=== PATIENT | female | born 1940 | race Caucasian/White ===

== ENCOUNTER 2022-07-14 09:41 | Inpatient (IN) | payer OTHER ==
[~2022-07-14] VITALS: Ht 170.2 cm; Wt 48.1 kg
[2022-07-14 09:41] VITALS: BP_SYST 111
--- NOTE | 2022-07-14 09:41 | NUR ---
ASSISTED OUT OF CAR TO WHEELCHAIR, BROUGHT BACK TO BED #6 AND TRIAGED. REPORT GIVEN TO NANCY
--- NOTE | 2022-07-14 09:42 | NUR ---
RECEIVED PT FROM MALENA HERNÁNDEZ. PT BIB GRANDDAUGHTER FOR C/O SOB. PT IS AAOX4. ON R/A. 02 SAT AT 89%. NC AT 2LPM PLACED. NORMAL S1S2 NOTED. DENIES N/V/D/C. DISTAL PULSES NORMAL. DENIES PAIN. SIDERAILS UP X2.
[2022-07-14] MEDS ORDERED: methylPREDNISolone SOD SUCC/PF 62.5 MG/ML VIAL IVP ONE (09:45)
[2022-07-14] MEDS ORDERED: IPRATROPIUM/ALBUTEROL SULFATE 3 ML AMPUL.NEB (DUONEB) INH ONE (09:45)
--- NOTE | 2022-07-14 09:45 | NUR ---
ER at bedside examining patient.
--- NOTE | 2022-07-14 09:50 | NUR ---
# 20 gauge angiocath placed to LFA. Use of asceptic technique. Opsite placed over site. Blood return noted. Flushed with 10 cc of normal saline. No evidence of infiltration noted. Patient tolerated well.
--- NOTE | 2022-07-14 10:04 | NUR ---
BLOOD OBTAINED AND TAKEN TO LAB, CXR COMPLETED. R/T AT BEDSIDE TO GIVE BREATHING TX.
--- NOTE | 2022-07-14 10:08 | NUR ---
SCHEDULED MED GIVEN AND TOLERATED WELL.
[2022-07-14 10:22] LABS: EOSINOPHILS % (AUTO) 0.1 % (0.0-4.0); HEMATOCRIT 38.3 % (36-48); HEMOGLOBIN 12.7 g/dL (12.0-16.0); LYMPHOCYTES # (AUTO) 1.2 K/uL (1.0-5.5); LYMPHOCYTES % (AUTO) 15.9 % (20.5-51.5); MEAN CORPUSCULAR HEMOGLOBIN 31 pg (27-31); MEAN CORPUSCULAR HGB CONC 33 % (32-36); MEAN CORPUSCULAR VOLUME 95 fL (79.0-98.0); MONOCYTES # (AUTO) 0.4 K/uL (0.0-1.0); MONOCYTES % (AUTO) 5.6 % (1.7-9.3); NEUTROPHILS # (AUTO) 5.8 K/uL (1.8-7.7); NEUTROPHILS % (AUTO) 78.4 % (40.0-70.0); PLATELET COUNT (AUTO) 137 K/uL (130-430); RED BLOOD CELL COUNT(AUTO) 4.05 MIL/uL (4.2-6.2); RED CELL DISTRIBUTION WIDTH 14.1 % (9.0-15.0); WHITE BLOOD COUNT (AUTO) 7.4 K/uL (4.8-10.8)
[2022-07-14 10:49] LABS: ALANINE AMINOTRANSFERASE 44 U/L (12-78); ALBUMIN 3.3 g/dL (3.4-4.8); ANION GAP 3 (5-15); ASPARTATE AMINOTRANSFERASE 48 U/L (10-37); CALCIUM 8.9 mg/dL (8.4-11.0); CHLORIDE 87 mmol/L (98-107); CREATININE 0.96 mg/dL (0.55-1.30); GLUCOSE 130 mg/dL (70-99); TOTAL BILIRUBIN 0.5 mg/dL (0.0-1.0); UREA NITROGEN, BLOOD 23 mg/dL (8-21)
--- NOTE | 2022-07-14 10:49 | NUR ---
CT SCAN COMPLETED. PT PLACED BACK ON MONITOR.
[2022-07-14 10:55] LABS: INR 1.1 (0.8-1.2)
--- NOTE | 2022-07-14 10:57 | NUR ---
NS 1000ML INITATED AT 150ML/HOUR,
--- NOTE | 2022-07-14 10:58 | NUR ---
BRIAN SWABBED AND SENT TO LAB
[2022-07-14] MEDS ORDERED: NACL 0.9% 1,000 ML IV ONE (11:00)
[2022-07-14] MEDS ORDERED: BENA10TA73 PO (12:38)
[2022-07-14] MEDS ORDERED: CARV25TA55 PO (12:38)
[2022-07-14] MEDS ORDERED: SIMV-341 PO (12:38)
[2022-07-14] MEDS ORDERED: RIVA15TA PO (12:38)
--- NOTE | 2022-07-14 12:38 | NUR ---
Medication reconciliation completed with information provided by PATIENT. Any prior medication reconciliation on file was reviewed and corrected.
--- NOTE | 2022-07-14 13:28 | NUR ---
Admit bed requested Patient will be admitted to care of . Admitted to TELEMETRY unit. Diagnosis COPD EXACERBATION Inpatient (Yes or No) YES Observation (Yes or No) NO Orientation concerns or request close to nursing station (Yes or No) NO Covid Status NEGATIVE On vent or bipap NO Isolation requirements NONE Needs a sitter NO From Home (Yes or if No enter name of facility) YES Requires Dialysis (Yes or No) NO Med Rec Completed (Yes of No) YES
[2022-07-14] MEDS: METHYLPREDNISOLONE SOD SUCC 40 MG/ML VIAL IVP SCH ×2 (13:49→21:45)
--- NOTE | 2022-07-14 13:49 | NUR ---
ROCHEPHIN IVPB GIVEN, SOLUMEDROL IVP GIVEN.
[2022-07-14 13:57] LABS: CLARITY/URINE CLEAR (CLEAR); COLOR,URINE YELLOW (YELLOW); GLUCOSE,URINE NEGATIVE (NEGATIVE); KETONES,URINE 1+ (NEGATIVE); LEUKOCYTE ESTERASE ,URINE NEGATIVE (NEGATIVE); NITRITE, URINE NEGATIVE (NEGATIVE); PROTEIN URINE 2+ (NEGATIVE); UROBILINOGEN,URINE 0.2 (0.2-1.0)
[2022-07-14] MEDS ORDERED: cefTRIAXone 1 GM IVPB PREMIX 50 ML IV ONE (14:00)
[2022-07-14 14:10] LABS: BILIRUBIN,URINE NEGATIVE (NEGATIVE); BLOOD, URINE TRACE (NEGATIVE)
[2022-07-14 14:16] LABS: BACTERIA,URINE None Seen /HPF (None Seen); MUCUS,URINE 1+ /LPF (None Seen); WBC,URINE 0-3 /HPF (0-3)
[2022-07-14] MEDS: IPRATROPIUM/ALBUTEROL SULFATE 3 ML AMPUL.NEB (DUONEB) INH SCH ×3 (15:00→23:38)
[2022-07-14] MEDS: cefTRIAXone 1 GM IVPB PREMIX 50 ML IV SCH (15:52)
--- NOTE | 2022-07-14 17:36 | NUR ---
Patient will be admitted to care of MALENA CHUNG. Admitted to TELEMETRY unit. Will go to room 101B. Belongings list completed. Complete and up to date summary report printed. SBAR report to be given at bedside with opportunity for questions.
[2022-07-14 18:57] VITALS: BP_SYST 162
[2022-07-14 20:00] VITALS: BP_SYST 149
--- NOTE | 2022-07-14 20:40 | NUR ---
Patient received in room 101B at 1730 with grand saucedo at bedside. Gave patient orientation to room, call light and discussed saftey issues. Admission completed by this RN and report given to MALENA Banda for NOC shift care at this time. MD has been to bedside for admission and to provide patient meds at this time.
[2022-07-14] MEDS ORDERED: LORATADINE PO SCH (21:00)
[2022-07-14] MEDS ORDERED: [UNRECOGNIZED DRUG - OTHER] PO SCH (21:00)
[2022-07-14] MEDS ORDERED: P-EPHED SUL/LORATADINE 1 EACH TAB.SR.12H PO ONE ×2 (21:15→21:30)
--- NOTE | 2022-07-14 21:45 | NUR ---
Solu-medrol Scheduled med given as ordered. Reviewed side effects and she verbalized understanding.
--- NOTE | 2022-07-14 22:55 | NUR ---
Dr. Hurt, pt coughing s/w Dr. Hurt and informed patient is coughing and received medication order for Promethezine DM 5ml Q6P cough; TORB
[2022-07-14 23:44] VITALS: BP_SYST 149
[2022-07-15 01:22] VITALS: BP_SYST 149
[2022-07-15] MEDS ORDERED: PROMETHAZINE-DM 6.25 MG-15 MG/5 ML UDC ONE (01:36)
[2022-07-15] MEDS: IPRATROPIUM/ALBUTEROL SULFATE 3 ML AMPUL.NEB (DUONEB) INH SCH ×6 (03:49→23:00)
[2022-07-15] MEDS: METHYLPREDNISOLONE SOD SUCC 40 MG/ML VIAL IVP SCH ×4 (06:20→23:43)
--- NOTE | 2022-07-15 06:46 | NUR ---
CLOSING Patient is sleeping comfortably in bed, no s/s of any discomfort, cough subsided with promethazine, pt was able to sleep, IV on left AC 20 Gauge patent and intact. bed at lowest position for safety. encourage to use call light for assistance. will endorse to income nurse.
[2022-07-15 08:00] VITALS: BP_SYST 157; BP_SYST 158
[2022-07-15] MEDS: P-EPHED SUL/LORATADINE 1 EACH TAB.SR.12H PO SCH ×2 (08:44→20:24)
[2022-07-15 11:38] VITALS: BP_SYST 155
[2022-07-15] MEDS ORDERED: LISINOPRIL 10 MG TABLET (PRINIVIL) PO ONE (12:30)
[2022-07-15] MEDS ORDERED: CARVEDILOL 25 MG TABLET (COREG) PO ONE (12:30)
[2022-07-15] MEDS ORDERED: FUROSEMIDE 20 MG/2 ML VIAL IVP ONE (12:45)
[2022-07-15] MEDS ORDERED: NACL 0.9% 1,000 ML IV SCH (12:45)
--- NOTE | 2022-07-15 12:53 | NUR ---
CONSULTATION PAGED REASON FOR CONSULTATION:HYPOPNATREMIA WAS CONSULT CALLED?Y PERSON WHO WAS NOTIFIED:KANDI CONSULTING PHYSICIAN:GARLAND BAILON ( [employer]ERMAN HELPER) DOOR TO DOOR SELLING AGENT SPECIALTY:NEPHRO DOOR TO DOOR SELLING AGENT PHONE NUMBER:[phone] REQUESTING PHYSICIAN:JELENA ZHANG
[2022-07-15] MEDS: PROMETHAZINE-DM 6.25 MG-15 MG/5 ML UDC PO PRN ×2 (13:24→20:24)
[2022-07-15] MEDS: AZITHROMYCIN 500 MG in NS 250 ML IV SCH (15:20)
[2022-07-15] MEDS: ACETYLCYSTEINE 20% 4 ML VIAL (RT) INH SCH ×2 (15:51→21:00)
--- NOTE | 2022-07-15 15:53 | NUR ---
Dietitian Recommendations * Regular diet, Ensure TID, Dixon BID (supplements yield an additional 1230 kcal/day, 65 gm protein/day) * Snacks TID between meals * Encourage good PO intakes LP, MS, RD Please refer to Nutrition Assessment for details. Addendum: 07/15/22 at [address] Amended: Links added.
[2022-07-15 16:36] VITALS: BP_SYST 147
[2022-07-15] MEDS: RIVAROXABAN 15 MG TABLET PO SCH (17:49)
--- NOTE | 2022-07-15 18:16 | NUR ---
A/OX4,VSS,O2 SAT 94% ON ROOM AIR,COUGHING AT TIMES WITH WHITE THIN SPUTUM,IV SITE IN LEFT ANTECUBITAL REMAINS PATENT AND INTACT, IVF CONTINUE INFUSING,GIVE IV ANTIBIOTIC ,NO ADVERSE REACTIONS OBSERVED NEEDS ATTENDED,CALL LIGHT & PERSONAL ITEMS WITHIN PT REACH,SAFETY MAINTAINED CONTINUE TO MONITOR PT.
[2022-07-15 19:18] VITALS: BP_SYST 148
--- NOTE | 2022-07-15 19:18 | NUR ---
PM ASSESSMENT; Patient is awake, alert, oriented X 4. Patient oriented to hospital room, call light, toileting, pain management and safety-teach back done. Pt denies any chest pain,pain,sob,or any acute distress. Patient informed that I (Regina) will be her nurse and that their room number is 101-B. Discussed poc and all safety measures, pt verbalized understanding. Side rails x2, Call light within reach. Cont to monitor pt.
[2022-07-15] MEDS: SIMVASTATIN 10 MG TABLET PO SCH (20:25)
--- NOTE | 2022-07-15 22:35 | NUR ---
CONSULTATION CALLED FOR MP GAGNON FOR CONSULT OF COPD EXACERBATE ORDER BY DR. DIAZ SPOKE WITH SHERLYN
[2022-07-16] VITALS (7 sets, daily range): BP systolic 152–172
--- NOTE | 2022-07-16 00:11 | NUR ---
ROUNDS; -Pt is resting in bed. Pt denies any chest pain,pain,sob,or any acute distress. VSS. IVF infusing well, no s/s any infiltration noted. Side rails x2, bed alarmed. Call light within reach. Cont to monitor pt.
[2022-07-16] MEDS: IPRATROPIUM/ALBUTEROL SULFATE 3 ML AMPUL.NEB (DUONEB) INH SCH ×6 (03:00→23:00)
[2022-07-16] MEDS: PROMETHAZINE-DM 6.25 MG-15 MG/5 ML UDC PO PRN ×3 (03:38→23:00)
--- NOTE | 2022-07-16 03:38 | NUR ---
ROUNDS; -Pt awakes, just using BSC and returned to bed safely. Pt denies any chest pain,pain,sob,or any acute distress. Gave Phenergan DM for cough. Side rails x2, bed alarmed. Call light within reach. Cont to monitor pt.
[2022-07-16] MEDS: METHYLPREDNISOLONE SOD SUCC 40 MG/ML VIAL IVP SCH ×4 (05:40→23:00)
--- NOTE | 2022-07-16 06:57 | NUR ---
CLOSING NOTES; -Pt awakes, resting in bed comfortably. Pt denies chest pain,pain,sob,or any acute distress. Pt's condition stable. Bed alarmed, side rails x3,call light w/in reach. Will endorse to next nurse to cont care.
[2022-07-16] MEDS: ACETYLCYSTEINE 20% 4 ML VIAL (RT) INH SCH ×3 (07:40→19:27)
[2022-07-16] MEDS: LISINOPRIL 10 MG TABLET (PRINIVIL) PO SCH (08:44)
[2022-07-16] MEDS: P-EPHED SUL/LORATADINE 1 EACH TAB.SR.12H PO SCH ×2 (08:45→21:18)
[2022-07-16] MEDS: CARVEDILOL 25 MG TABLET (COREG) PO SCH (08:45)
[2022-07-16 10:25] LABS: BASOPHILS % (AUTO) 0.1 % (0.0-2.0); HEMATOCRIT 37.2 % (36-48); HEMOGLOBIN 12.6 g/dL (12.0-16.0); LYMPHOCYTES % (AUTO) 11.1 % (20.5-51.5); MEAN CORPUSCULAR HEMOGLOBIN 32 pg (27-31); MEAN CORPUSCULAR HGB CONC 34 % (32-36); MEAN CORPUSCULAR VOLUME 93 fL (79.0-98.0); MONOCYTES # (AUTO) 0.3 K/uL (0.0-1.0); MONOCYTES % (AUTO) 3.2 % (1.7-9.3); NEUTROPHILS # (AUTO) 7.7 K/uL (1.8-7.7); NEUTROPHILS % (AUTO) 85.6 % (40.0-70.0); PLATELET COUNT (AUTO) 161 K/uL (130-430); RED BLOOD CELL COUNT(AUTO) 4.01 MIL/uL (4.2-6.2); RED CELL DISTRIBUTION WIDTH 14.2 % (9.0-15.0)
[2022-07-16 10:42] LABS: ALANINE AMINOTRANSFERASE 51 U/L (12-78); ALBUMIN 2.9 g/dL (3.4-4.8); ANION GAP 4 (5-15); ASPARTATE AMINOTRANSFERASE 45 U/L (10-37); CALCIUM 8.4 mg/dL (8.4-11.0); CHLORIDE 92 mmol/L (98-107); CREATININE 0.98 mg/dL (0.55-1.30); GLUCOSE 179 mg/dL (70-99); TOTAL BILIRUBIN 0.4 mg/dL (0.0-1.0); UREA NITROGEN, BLOOD 24 mg/dL (8-21)
[2022-07-16] MEDS: cefTRIAXone 1 GM IVPB PREMIX 50 ML IV SCH (15:47)
[2022-07-16] MEDS: AZITHROMYCIN 500 MG in NS 250 ML IV SCH (16:18)
[2022-07-16] MEDS: RIVAROXABAN 15 MG TABLET PO SCH (17:36)
--- NOTE | 2022-07-16 19:25 | NUR ---
PM ASSESSMENT; Patient is awake, alert, oriented X 4. Patient oriented to hospital room, call light, toileting, pain management and safety-teach back done. Pt denies any chest pain,pain,sob,or any acute distress. IV site LAC patent no s/s any infiltration after flushed w/ NS noted. Patient informed that I (Regina) will be her nurse and that their room number is 101-B. Discussed poc and all safety measures, pt verbalized understanding. Side rails x2, Call light within reach. Cont to monitor pt.
[2022-07-16] MEDS: SIMVASTATIN 10 MG TABLET PO SCH (21:18)
[2022-07-16] MEDS: hydrALAZINE HCL 20 MG/ML VIAL IVP PRN (21:19)
--- NOTE | 2022-07-16 21:19 | NUR ---
NOTES; ELEVATED US=964/95,HR=89 -Gave Apresoline 10mg IVP for elevated bp. Instructed pt not get OOB by self d/ to side of this medication ( may cause dizziness and fall risk) pt verbalized understanding. Fall precaution in place. Call light w/in reach, bed alarmed, side rails x2. Cont to monitor pt.
[2022-07-16] MEDS ORDERED: PROMETHAZINE-DM 6.25 MG-15 MG/5 ML UDC ONE (21:37)
[2022-07-17] MEDS: IPRATROPIUM/ALBUTEROL SULFATE 3 ML AMPUL.NEB (DUONEB) INH SCH ×4 (04:07→20:16)
--- NOTE | 2022-07-17 04:23 | NUR ---
ROUNDS; -Pt is resting in bed comfortably. No s/s any acute distress noted. Side rails x2, bed alarmed. Call light within reach. Cont to monitor pt.
[2022-07-17] MEDS: METHYLPREDNISOLONE SOD SUCC 40 MG/ML VIAL IVP SCH ×3 (05:54→20:52)
[2022-07-17] MEDS: ACETYLCYSTEINE 20% 4 ML VIAL (RT) INH SCH (07:12)
[2022-07-17 07:22] LABS: ALANINE AMINOTRANSFERASE 59 U/L (12-78); ALBUMIN 2.9 g/dL (3.4-4.8); ANION GAP 7 (5-15); ASPARTATE AMINOTRANSFERASE 43 U/L (10-37); CALCIUM 8.5 mg/dL (8.4-11.0); CHLORIDE 94 mmol/L (98-107); CREATININE 0.56 mg/dL (0.55-1.30); GLUCOSE 154 mg/dL (70-99); TOTAL BILIRUBIN 0.4 mg/dL (0.0-1.0); UREA NITROGEN, BLOOD 23 mg/dL (8-21)
[2022-07-17 07:24] LABS: HEMATOCRIT 36.3 % (36-48); HEMOGLOBIN 12.3 g/dL (12.0-16.0); LYMPHOCYTES # (AUTO) 1.7 K/uL (1.0-5.5); LYMPHOCYTES % (AUTO) 15.3 % (20.5-51.5); MEAN CORPUSCULAR HEMOGLOBIN 31 pg (27-31); MEAN CORPUSCULAR HGB CONC 34 % (32-36); MEAN CORPUSCULAR VOLUME 93 fL (79.0-98.0); MONOCYTES # (AUTO) 0.3 K/uL (0.0-1.0); MONOCYTES % (AUTO) 2.5 % (1.7-9.3); NEUTROPHILS # (AUTO) 8.9 K/uL (1.8-7.7); NEUTROPHILS % (AUTO) 82.2 % (40.0-70.0); PLATELET COUNT (AUTO) 164 K/uL (130-430); RED BLOOD CELL COUNT(AUTO) 3.92 MIL/uL (4.2-6.2); RED CELL DISTRIBUTION WIDTH 14.4 % (9.0-15.0); WHITE BLOOD COUNT (AUTO) 10.9 K/uL (4.8-10.8)
[2022-07-17 08:00] VITALS: BP_SYST 160
[2022-07-17] MEDS: P-EPHED SUL/LORATADINE 1 EACH TAB.SR.12H PO SCH (08:22)
[2022-07-17] MEDS: CARVEDILOL 25 MG TABLET (COREG) PO SCH (08:22)
[2022-07-17] MEDS: LISINOPRIL 10 MG TABLET (PRINIVIL) PO SCH (08:23)
[2022-07-17 12:00] VITALS: BP_SYST 153
[2022-07-17] MEDS: cefTRIAXone 1 GM IVPB PREMIX 50 ML IV SCH (15:02)
[2022-07-17 16:00] VITALS: BP_SYST 155
[2022-07-17] MEDS: AZITHROMYCIN 500 MG in NS 250 ML IV SCH (16:00)
[2022-07-17] MEDS: RIVAROXABAN 15 MG TABLET PO SCH (18:11)
[2022-07-17 19:00] VITALS: BP_SYST 156
--- NOTE | 2022-07-17 19:15 | NUR ---
change of shift.pt.presents quiescent affect;calm,resting.pt.presents no c/o pain,nausea.pt.presents general status stable respiratory status stable;cough present.02-sat%=98%@room air.inh treatments ordered q-6hrs.pt.capable to reposition self/ ambulate un-assisted.call light/telephone w/in access of the pt.
[2022-07-17 20:00] VITALS: BP_SYST 156
--- NOTE | 2022-07-17 20:00 | NUR ---
pt.assessed.v/s assessed values wnl.o2-sat%=98%.no c/o pain,nausea.pt.apprised snaCKS/BEVGERAges are AVaILAblE w/in the shift.NO REQUeSTs POSiTed@THis hour.pt.CAPabLe tO REpositION SELF.CALL lIGHT/TELE[employer]One W/In ACcess OF THe PT.
[2022-07-17] MEDS: SIMVASTATIN 10 MG TABLET PO SCH (20:53)
--- NOTE | 2022-07-17 21:00 | NUR ---
2100p medications administered.pt.capable to ingest the po medications w/out difficulty.no c/o pain,nausea. no requests posited@this hour.i was to administer medication;cough.no medication in stock.noted west/east side pysis.
--- NOTE | 2022-07-17 22:00 | NUR ---
pt.assessed.pt.quiescent.02-sat%=98%per flacc pain mgx absent facial grimaces/body posturing.pt.capable to reposition self.call light/telephone w/in access of the pt.
[2022-07-18] VITALS: BP_SYST 152
--- NOTE | 2022-07-18 | NUR ---
pt.assessed.v/s assessed values wnl.02-sat%=98%no c/o pain,nausea.no requests posited@this hour.pt.capable to reposition self.call light/telephone w/in access of the pt.
[2022-07-18] MEDS: IPRATROPIUM/ALBUTEROL SULFATE 3 ML AMPUL.NEB (DUONEB) INH SCH ×4 (01:19→19:47)
--- NOTE | 2022-07-18 02:00 | NUR ---
pt.assessed.pt.quiescent.02-sat%=96%.per flacc pain mgx pt.absent facial grimaces/body posturing.pt.capable to reposition self.call light/telephone placed w/in access of the pt.
--- NOTE | 2022-07-18 04:00 | NUR ---
pt.assessed.pt.quiescent.per flacc pain mgx pt.absent facial grimaces/body posturing.pt.capable to reposition self. call light/telephone w/in access of the pt.
[2022-07-18] MEDS: METHYLPREDNISOLONE SOD SUCC 40 MG/ML VIAL IVP SCH ×3 (05:32→23:15)
[2022-07-18] MEDS: hydrALAZINE HCL 20 MG/ML VIAL IVP PRN ×2 (05:45→23:19)
[2022-07-18 06:00] VITALS: BP_SYST 163
--- NOTE | 2022-07-18 06:09 | NUR ---
pt.assessed.v/s assessed note b/p status.b/p status elevated.hydralizine;10mg ivp administered.to assess the efficacy of the medication;b/p per protocol.no c/o pain,nausea.pt.capable to reposition self.02-sat%=98%call light/telephone placed w/in access of the pt.
[2022-07-18 06:55] LABS: BASOPHILS % (AUTO) 0.1 % (0.0-2.0); HEMATOCRIT 36.2 % (36-48); HEMOGLOBIN 12.2 g/dL (12.0-16.0); LYMPHOCYTES # (AUTO) 2.4 K/uL (1.0-5.5); LYMPHOCYTES % (AUTO) 22.6 % (20.5-51.5); MEAN CORPUSCULAR HEMOGLOBIN 31 pg (27-31); MEAN CORPUSCULAR HGB CONC 34 % (32-36); MEAN CORPUSCULAR VOLUME 92 fL (79.0-98.0); MONOCYTES # (AUTO) 0.4 K/uL (0.0-1.0); NEUTROPHILS # (AUTO) 7.7 K/uL (1.8-7.7); NEUTROPHILS % (AUTO) 73.3 % (40.0-70.0); PLATELET COUNT (AUTO) 186 K/uL (130-430); RED BLOOD CELL COUNT(AUTO) 3.91 MIL/uL (4.2-6.2); RED CELL DISTRIBUTION WIDTH 14.3 % (9.0-15.0); WHITE BLOOD COUNT (AUTO) 10.5 K/uL (4.8-10.8)
[2022-07-18 07:43] LABS: ALANINE AMINOTRANSFERASE 58 U/L (12-78); ALBUMIN 2.7 g/dL (3.4-4.8); ANION GAP 8 (5-15); ASPARTATE AMINOTRANSFERASE 34 U/L (10-37); CALCIUM 8.3 mg/dL (8.4-11.0); CHLORIDE 97 mmol/L (98-107); CREATININE 0.85 mg/dL (0.55-1.30); GLUCOSE 156 mg/dL (70-99); TOTAL BILIRUBIN 0.4 mg/dL (0.0-1.0); UREA NITROGEN, BLOOD 25 mg/dL (8-21)
[2022-07-18 08:00] VITALS: BP_SYST 153
--- NOTE | 2022-07-18 08:06 | NUR ---
OPENING received pt alert, oriented, vitals stable. skin warm and dry. respirations even, unlabored receiving breathing tx with RT at this time. denies pain. states she has not slept and is very tired. call light in reach. decolonization started for MRSA. cough medication available. pt requesting sleep aide for this evening.
[2022-07-18] MEDS: LISINOPRIL 10 MG TABLET (PRINIVIL) PO SCH (08:41)
[2022-07-18] MEDS: CARVEDILOL 25 MG TABLET (COREG) PO SCH (08:41)
[2022-07-18] MEDS: MUPIROCIN 2% TOPICAL OINTMENT 22 GM NS SCH ×2 (08:42→20:41)
[2022-07-18] MEDS: PROMETHAZINE-DM 6.25 MG-15 MG/5 ML UDC PO PRN ×2 (08:42→20:38)
[2022-07-18] MEDS: LORATADINE 10 MG TABLET PO SCH (08:42)
[2022-07-18 11:22] VITALS: BP_SYST 134
[2022-07-18] MEDS ORDERED: METHYLPREDNISOLONE SOD SUCC 40 MG/ML VIAL IVP ONE (13:45)
[2022-07-18] MEDS: cefTRIAXone 1 GM IVPB PREMIX 50 ML IV SCH (14:21)
[2022-07-18 14:57] VITALS: BP_SYST 125
[2022-07-18] MEDS: AZITHROMYCIN 500 MG in NS 250 ML IV SCH (16:30)
[2022-07-18] MEDS: RIVAROXABAN 15 MG TABLET PO SCH (17:58)
[2022-07-18 20:00] VITALS: BP_SYST 152
[2022-07-18] MEDS: SIMVASTATIN 10 MG TABLET PO SCH (20:38)
[2022-07-18] MEDS: traZODone HCL 50 MG TABLET (DESYREL) PO PRN (20:38)
[2022-07-18] MEDS: guaiFENesin ER 600 MG TAB PO SCH (20:38)
--- NOTE | 2022-07-18 21:48 | NUR ---
OPENING NOTES: Patient received from AM shift nurse. Patient is AA&Ox4 able to make needs known, denies any pain or distress at this time with call light within reach. Chest rise is even and unlabored on RA. Safety measures are in place as per protocol. Will resume care and continue to monitor throughout the shift. 2129 Patient has been assessed as per protocol. All scheduled medications have been administered and patient tolerated them well. Patient also received requested PRN medications as indicated. BSC was emptied at this time and patient was provided minimal assistance with getting ready for bed. Safety measures remain in place. Will continue to monitor.
[2022-07-19] VITALS (7 sets, daily range): BP systolic 135–167
[2022-07-19] MEDS: METHYLPREDNISOLONE SOD SUCC 40 MG/ML VIAL IVP SCH ×4 (05:34→23:39)
[2022-07-19] MEDS: hydrALAZINE HCL 20 MG/ML VIAL IVP PRN ×2 (05:39→23:44)
[2022-07-19] MEDS: IPRATROPIUM/ALBUTEROL SULFATE 3 ML AMPUL.NEB (DUONEB) INH SCH ×4 (07:03→19:37)
[2022-07-19] MEDS: CARVEDILOL 25 MG TABLET (COREG) PO SCH (07:46)
[2022-07-19] MEDS: guaiFENesin ER 600 MG TAB PO SCH ×2 (07:47→21:32)
[2022-07-19] MEDS: LISINOPRIL 10 MG TABLET (PRINIVIL) PO SCH (07:47)
[2022-07-19] MEDS: LORATADINE 10 MG TABLET PO SCH (07:47)
[2022-07-19] MEDS: MUPIROCIN 2% TOPICAL OINTMENT 22 GM NS SCH ×2 (07:50→21:33)
--- NOTE | 2022-07-19 07:50 | NUR ---
PAIN PATIENT IS REQUESTING TYLENOL FOR NECK PAIN, PAGED DR RUSSELL
--- NOTE | 2022-07-19 08:33 | NUR ---
SPOKE WITH DR RUSSELL NEW ORDERS RECEIVED
--- NOTE | 2022-07-19 08:42 | NUR ---
ELEVATED BP SPOKE WITH DR RUSSELL REGARDING ELEVATED BP DURING THE NIGHT. NEW ORDERS RECEIVED
[2022-07-19] MEDS ORDERED: LISINOPRIL 10 MG TABLET (PRINIVIL) PO ONE (08:45)
[2022-07-19] MEDS ORDERED: ACETAMINOPHEN 500 MG TABLET PO PRN (08:45)
--- NOTE | 2022-07-19 10:21 | NUR ---
CHANGE IN CONDITION INFORMED DR LEOS THAT PATIENT IS HAVING SOB AND DIMINISHED SOUNDS AT THE LUNG BASE. NEW ORDERS RECEIVED
[2022-07-19] MEDS ORDERED: IPRATROPIUM/ALBUTEROL SULFATE 3 ML AMPUL.NEB (DUONEB) INH ONE (10:30)
[2022-07-19] MEDS ORDERED: IPRATROPIUM/ALBUTEROL SULFATE 3 ML AMPUL.NEB (DUONEB) ONE (10:33)
[2022-07-19] MEDS ORDERED: NALOXONE HCL 0.4 MG/ML AMP (NARCAN) IVP PRN (14:15)
[2022-07-19] MEDS: ACETAMINOPHEN/CODEINE 300 MG-30 MG TABLET PO PRN ×2 (14:28→21:33)
[2022-07-19] MEDS: cefTRIAXone 1 GM IVPB PREMIX 50 ML IV SCH (14:28)
[2022-07-19] MEDS: AZITHROMYCIN 500 MG in NS 250 ML IV SCH (15:30)
[2022-07-19] MEDS: RIVAROXABAN 15 MG TABLET PO SCH (18:21)
[2022-07-19] MEDS ORDERED: FUROSEMIDE 20 MG TABLET PO ONE (18:30)
--- NOTE | 2022-07-19 20:13 | NUR ---
OPENING NOTES: Patient received from AM shift nurse. Patient is awake with RT at bedside, able to make needs known, denies pain or distress at this time. Chest rise is even and unlabored while receiving breathing tx on RA at baseline. Safety measures in place as per protocol, will resume care and monitor throughout the shift.
[2022-07-19] MEDS: traZODone HCL 50 MG TABLET (DESYREL) PO PRN (21:32)
[2022-07-19] MEDS: SIMVASTATIN 10 MG TABLET PO SCH (21:32)
[2022-07-20] VITALS: BP_SYST 182
[2022-07-20 02:19] VITALS: BP_SYST 150
[2022-07-20] MEDS: METHYLPREDNISOLONE SOD SUCC 40 MG/ML VIAL IVP SCH ×2 (05:38→11:42)
[2022-07-20] MEDS: IPRATROPIUM/ALBUTEROL SULFATE 3 ML AMPUL.NEB (DUONEB) INH SCH ×4 (06:00→19:49)
[2022-07-20 08:00] VITALS: BP_SYST 145
--- NOTE | 2022-07-20 08:00 | NUR ---
RECEIVED PATIENT AWAKE IN BED. A/O X 4. VSS. AFEBRILE. RESPIRATIONS EVEN AND UNLABORED. NO SOB NOTED. O2 SAT ON ROOM AIR 98%. A-FIB ON TELE MONITOR. 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 HL INTACT AND PATENT. DENIES PAIN AT THIS TIME. NO ACUTE DISTRESS AT THIS TIME. NO ACUTE DISTRESS NOTED. WILL CONTINUE TO MONITOR FOR SAFETY. Joanna TALLEY RN.
[2022-07-20 08:19] LABS: ANION GAP 8 (5-15); CALCIUM 8.2 mg/dL (8.4-11.0); CHLORIDE 98 mmol/L (98-107); CREATININE 0.82 mg/dL (0.55-1.30); GLUCOSE 159 mg/dL (70-99); UREA NITROGEN, BLOOD 26 mg/dL (8-21)
[2022-07-20] MEDS: guaiFENesin ER 600 MG TAB PO SCH ×2 (08:37→21:00)
[2022-07-20] MEDS: MUPIROCIN 2% TOPICAL OINTMENT 22 GM NS SCH ×2 (08:37→21:00)
[2022-07-20] MEDS: CARVEDILOL 25 MG TABLET (COREG) PO SCH (08:37)
[2022-07-20] MEDS: FUROSEMIDE 20 MG TABLET PO SCH ×2 (08:37→21:00)
[2022-07-20] MEDS: lisinopriL 20 MG TABLET PO SCH (08:37)
[2022-07-20] MEDS: LORATADINE 10 MG TABLET PO SCH (08:37)
[2022-07-20 11:39] VITALS: BP_SYST 139
[2022-07-20] MEDS: cefTRIAXone 1 GM IVPB PREMIX 50 ML IV SCH (14:43)
[2022-07-20] MEDS: AZITHROMYCIN 500 MG in NS 250 ML IV SCH (15:56)
[2022-07-20 16:42] VITALS: BP_SYST 138
[2022-07-20] MEDS: RIVAROXABAN 15 MG TABLET PO SCH (17:11)
--- NOTE | 2022-07-20 20:05 | NUR ---
RECEIVED PT IN BED, AOX4, EVEN AND UNLABORED BREATHING, ON RA, AND BRP, NO COMPLAIN ATT, WILL CONTINUE WITH POC
[2022-07-20 20:08] VITALS: BP_SYST 152
[2022-07-20] MEDS: ACETAMINOPHEN/CODEINE 300 MG-30 MG TABLET PO PRN (21:01)
[2022-07-20] MEDS: SIMVASTATIN 10 MG TABLET PO SCH (21:03)
[2022-07-20] MEDS ORDERED: METHYLPREDNISOLONE SOD SUCC 40 MG/ML VIAL IVP SCH (22:00)
[2022-07-21] VITALS (8 sets, daily range): BP systolic 135–163
[2022-07-21] MEDS: ACETAMINOPHEN/CODEINE 300 MG-30 MG TABLET PO PRN ×2 (05:42→11:15)
--- NOTE | 2022-07-21 07:09 | NUR ---
PT IN BED, AOX4, EVEN AND UNLABORED BREATHING, DENIED CP, SOB OR PAIN, ON ROOMAIR, BRP, SAFETY AND ISOLATION PREC MAINTAINED, WILL ENDORSE TO INCOMING RN
[2022-07-21] MEDS: IPRATROPIUM/ALBUTEROL SULFATE 3 ML AMPUL.NEB (DUONEB) INH SCH ×3 (08:04→13:19)
[2022-07-21] MEDS ORDERED: predniSONE 20 MG TABLET PO SCH (09:00)
[2022-07-21] MEDS: MUPIROCIN 2% TOPICAL OINTMENT 22 GM NS SCH (09:00)
[2022-07-21] MEDS ORDERED: LEVO750T64 PO (10:00)
[2022-07-21] MEDS ORDERED: PRED20TA PO (10:00)
[2022-07-21] MEDS ORDERED: BENA10TA73 PO (10:00)
[2022-07-21] MEDS ORDERED: PRED10TA PO (10:03)
[2022-07-21] MEDS ORDERED: PRO40 PO (10:04)
[2022-07-21] MEDS: LORATADINE 10 MG TABLET PO SCH (11:11)
[2022-07-21] MEDS: FUROSEMIDE 20 MG TABLET PO SCH (11:12)
[2022-07-21] MEDS: lisinopriL 20 MG TABLET PO SCH (11:13)
[2022-07-21] MEDS: CARVEDILOL 25 MG TABLET (COREG) PO SCH (11:14)
[2022-07-21] MEDS: guaiFENesin ER 600 MG TAB PO SCH (11:14)
[2022-07-21] MEDS: cefTRIAXone 1 GM IVPB PREMIX 50 ML IV SCH (16:10)
[2022-07-21] MEDS: RIVAROXABAN 15 MG TABLET PO SCH (17:37)
--- NOTE | 2022-07-21 19:04 | NUR ---
pt and family at bedside at time of discharge education. RN gave discharge instructions and medication action education, both pt and family verbalized understanding discharge instructions and medication actions. Granddaughter picked up pt today from hospital.
== END 2022-07-21 20:14 | disposition home or self-care (01) | DRG 190 ==
LOC: SED 09:41 → STU 13:19 → SMU 07-20 22:20
PROVIDERS: ADMIT Specialist; ATTEND Specialist
DX: J44.1 Chronic obstructive pulmonary disease with (acute) exacerbation (principal); J18.9 Pneumonia, unspecified organism; E87.1 Hypo-osmolality and hyponatremia; J44.0 Chronic obstructive pulmonary disease with (acute) lower respiratory infection; J20.9 Acute bronchitis, unspecified; I48.91 Unspecified atrial fibrillation; E78.5 Hyperlipidemia, unspecified; Z20.822 Contact with and (suspected) exposure to COVID-19; Z88.0 Allergy status to penicillin
CPT/HCPCS: 36415; 71045; 71270-TC; 76376; 80048; 80053; 81000; 82550; 82553; 83605; 83880; 84484; 85025; 85379; 85610-TC; 85730-TC; 87040; 87081; 87086; 93005; 94640; 94664; 94760; 99285; G0378; J0360; J0456; J0696; J1030; J1940; J2930; J7050; J7512; J7608